=== PATIENT | male | born 1955 | race Caucasian/White ===

== ENCOUNTER → 2023-07-31 06:13 | Day surgery (SDC) | payer OTHER, SELFPAY | LOC: GI 06:13 | PROVIDERS: ATTENDING PHYSICIAN Surgery | DX: Z12.11 Encounter for screening for malignant neoplasm of colon (principal); K57.30 Diverticulosis of large intestine without perforation or abscess without bleeding; K64.9 Unspecified hemorrhoids; K62.1 Rectal polyp; D12.3 Benign neoplasm of transverse colon; Z86.010 Personal history of colon polyps | CPT/HCPCS: 45380; 88305 ==

== ENCOUNTER → 2024-04-08 10:41 | Outpatient (REF) | payer OTHER, SELFPAY ==
[2024-04-08 12:32] LABS: % Basophils 0.2 % (0-2); % Lymphocytes 5.4 % (20.5-51.1); % Monocytes 3.8 % (1.7-9.3); % Neutrophils 89.6 % (42.2-75.2); Absolute Basophils 0.1 10^3/uL (0-0.2); Absolute Immature Granulocytes 0.2 10^3/uL (0-0.05); Absolute Lymphocytes 1.3 10^3/uL (1.2-3.4); Absolute Monocytes 0.9 10^3/uL (0.1-0.6); Hematocrit 44.8 % (39.0-52.0); Hemoglobin 15.4 g/dL (13.0-18.0); Mean Corp Hgb Conc. 34.4 g/dL (33.0-37.0); Mean Corpuscular Hgb 32.1 pg (27.0-31.0); Mean Corpuscular Volume 93.3 fL (80.0-94.0); Mean Platelet Volume 9.9 fL (7.4-10.4); Nucleated Red Blood Cells % 0 % (-); Platelet Count 188 10^3/uL (130-400); Red Cell Dist. Width 12.8 % (11.5-14.5); White Blood Cell Count 23.4 10^3/uL (4.8-10.8)
[2024-04-08 12:33] LABS: ALT (SGPT) 28 U/L (0-50); AST (SGOT) 26 U/L (17-59); Albumin 4.1 g/dl (3.5-5.0); Alkaline Phosphatase 41 U/L (38-126); Blood Urea Nitrogen 17 mg/dl (9-20); Carbon Dioxide 27 mmol/L (22-30); Chloride 94 mmol/L (98-107); Glucose 134 mg/dl (70-99); Potassium 4.2 mmol/L (3.5-5.1); Sodium 136 mmol/L (135-145); Total Bilirubin 2.2 mg/dl (0.2-1.3); Total Protein 6.5 g/dl (6.3-8.2); eGFR > 60.00
== END ==
LOC: HWLAB 10:41
PROVIDERS: ATTENDING PHYSICIAN Nurse Practitioner Family
DX: R39.9 Unspecified symptoms and signs involving the genitourinary system (principal)
CPT/HCPCS: 36415; 80053; 85025

== ENCOUNTER 2024-04-08 19:34 | Inpatient (IN) | payer OTHER, SELFPAY ==
[2024-04-08] VITALS (7 sets, daily range): BP systolic 98–140; BP diastolic 53–98; BMI 37.8; BMI 38.0
[2024-04-08 16:54] LABS: Urine Albumin Trace (Neg - Trace); Urine Bilirubin Negative (Negative); Urine Character Slightly Cloudy (Clear); Urine Color Amber; Urine Glucose Negative (Negative); Urine Ketone Trace (Negative); Urine Leukocyte 2+ (Negative); Urine Nitrite Positive (Negative); Urine Occult Blood 1+ (Negative); Urine Urobilinogen Negative (Neg - 1+)
--- NOTE | 2024-04-08 17:44 | ED.GENMED ---
History of Present Illness
General
Chief Complaint: Urinary Symptoms
Source: patient
Exam Limitations: none
Time Seen by Provider: 04/08/24 17:35
History of Present Illness
History of Present Illness:
69 year old male presents with 3 days of increased urinary frequency, dysuria and now fever. No flank pain or vomiting. Labs done through PMD as outpatient this AM showed WBC 23k. He notes myalgias otherwise. History of HTN and hyperlipidemia.
No chest pain or shortness of breath. No other complaints at this time
Past History
Past History
ED Past Medical History: HTN, Hypercholesterolemia and Other (Diverticulitis with Perforation); Negative Asthma or NIDDM
ED Past Surgical History: Orthopedic (Bilateral hip replacments)
Social History
Tobacco: Non-smoker
Alcohol: None
Personal:
Living: with family
Employment: Employed
Family History
Family History: Other (Noncontributory)
Phy Exam
Physical Exam
Physical Exam:
General: Well-appearing male no acute respiratory distress
HEENT: Normocephalic atraumatic
Heart: Tachycardic but regular
Lungs: Clear no wheeze
Abdomen soft nontender nondistended no guarding rebound normal bowel sounds
Extremities: No cyanosis or edema
Sepsis
Sepsis Screening
Sepsis Assessment: Sepsis
Sepsis Screen
Sepsis Screen: Sepsis
Date: 04/08/24
Time: 18:26
Course
Orders/Labs/Results
Orders:
Orders
04/08/24 16:27
Urinalysis Reflex To Culture Urgent
Date Specimen was Collected: 04/08/24
Time Specimen was Collected: 14:40
Urine Microscopic Reflex Cult Urgent
Urine Culture Urgent
MARIELLE Source: U
Specimen Description:
Date Specimen was Collected: 04/08/24
Time Specimen was Collected: 14:40
04/08/24 17:41
CefTRIAXone [Rocephin] 1,000 mg IV NOW STA
04/08/24 17:42
CT Abd/pel Without Iv Or Oral Urgent
Comment:
Reason For Exam: hematuria
04/08/24 17:45
Lactic Acid Q4H
Comment: CANCEL 2nd LACTIC ACID IF 1st LACTIC ACID IS LESS THAN 2
04/08/24 17:59
Blood Culture Urgent
MARIELLE Source: Blood/Venous
Specimen Description:
04/08/24 18:12
Blood Culture Routine
MARIELLE Source: Blood/Venous
Specimen Description:
04/08/24 21:45
Lactic Acid Q4H
Comment: CANCEL 2nd LACTIC ACID IF 1st LACTIC ACID IS LESS THAN 2
Abnormal Lab Results
04/08/24
16:27
Urine Ketones Trace A
(Negative)
Ur Occult Blood Reflex 1+ A
(Negative)
Urine Nitrite (Reflex) Positive A
(Negative)
Leukocyte Esterase Rfl 2+ A
(Negative)
Urine WBC (Reflex) >100 A /HPF
(0-5)
Urine Bacteria (Reflex) Many A
(Negative)
Vital Signs
Initial and Last Documented VS:
Initial Vital Signs
Temp Pulse Resp BP Pulse Ox
98.6 F 115 22 123/76 97
04/08/24 13:36 04/08/24 13:36 04/08/24 13:36 04/08/24 13:36 04/08/24 13:36
Last Documented Vital Signs
Temp Pulse Resp BP Pulse Ox
99.8 F 114 22 102/70 98
04/08/24 16:20 04/08/24 16:20 04/08/24 13:36 04/08/24 16:20 04/08/24 16:20
MDM/Problems Addressed
Differential Diagnosis Includes:
Urinary symptoms with fever. I reviewed labs from earlier today which demonstrate leukocytosis white count of 23,000. Urinalysis today concerning for urinary tract infection. Temperature 99.8 tachycardia. Concern for possible sepsis secondary to
related UTI. Will order CT scan to evaluate for any obstructing stone. Fluids ordered Rocephin ordered on top of lactic acid and blood cultures.
*Critical Care Note
Total Time (30-74mins, 75-104mins- exclusive of procedures): Not Applicable
Update Note
Update Note:
Urinalysis reviewed. CT ordered to evaluate for any obstructing stone which does not show any obvious stone. Fluids ordered Rocephin ordered will admit to hospitalist for sepsis and UTI.
ED Attending Note
-
Portions of this chart may have been created with voice recognition software.� Occasional wrong word or��sound alike� substitutions may have occurred due to the inherent limitations of voice recognition software.
Discharge Plan
Departure
Patient Disposition: Admit
Date of Disposition: 04/08/24
Time of Disposition: 18:25
Admit to: Telemetry
Presentation/result/management discussed w/ accepting MD/DO: Hospitalist
Discharge Problem:
Acute UTI, Sepsis
Prescriptions:
No Action
lisinopril-hydrochlorothiazide 20-12.5 mg tablet
2 tab PO DAILY
acetaminophen 650 mg Tablet Extended Release
1,300 mg PO DAILY
rosuvastatin 10 mg tablet
10 mg PO DAILY
Referrals:
Adela Huff MD [Family Provider] -
Interventions
Interventions:
*Risk Screen - Suicide Last Done: 04/08/24 13:36
*General Assessment Last Done: 04/08/24 13:36
*Neglect/Abuse Screening Last Done: 04/08/24 13:36
Discharge Date and Time
Print Language: MACEDONIAN
[2024-04-08 17:55] LABS: Urine Bacteria Many (Negative); Urine White Cell >100 /HPF (0-5)
[2024-04-08] MEDS: ROCEPHIN 1000 MG IV (18:31)
[2024-04-08] MEDS: NSS 1000 IV ×2 (18:35→22:11)
--- NOTE | 2024-04-08 18:44 | W.PN.UPDATE ---
Update Note
Progress Note Update
This is an addendum to H&P written by BARB Hernandez
I saw and examined the patient.
The MOTION PICTURE EQUIPMENT MACHINIST's note was reviewed and I agree with the note.
Comment:
Mr. Jorje Downs is a 69 yo man with hx HTN, HLD, b/l hip replacements presents to the ER with 3 days of increased urinary frequency and dysuria and fever x 1 day. No flank pain or vomiting. No significant lower abdominal/suprapubic pain.
Triage VS: T 98.6, P 115, RR 22, BP 123/76, SpO2 97%
On exam patient is in no acute distress, mildly flushed, lungs clear, CV: S2, S2, abdomen benign, no LE swelling
LABS: WBC 23.4, Hg 15.4, PLT 188, Na 136, K+ 4.2, Cl 94, Cr 1.1, Glucose 134, T. Bili 2.2, AST 26, ALT 28, Alk Phos 41, lactate 1.5 �
UA with > 100 WBC, 2+ leuk esterase
CT A/P
IMPRESSION: No acute pathology of the abdomen or pelvis identified.
Hepatic fatty infiltration. Stable
Small simple left renal cysts. Stable
Moderate fecal material throughout the colon. Progressed
Moderate diffuse bladder wall thickening likely at least partially due to limited distention. Cystitis and bladder outlet obstruction not excluded. Stable
Nonvisualization of distal ureters secondary to metallic artifact from bilateral hip hardware.
MAR: IV Ceftriaxone, IVF
Sepsis 2/2 UTI
-admit to telemetry
-IVF
-IV Ceftriaxone
-F/U urine culture
Essential HTN
-hold lisinopril-HCTZ with soft BP in ER
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
[2024-04-08 18:48] LABS: Lactic Acid 1.5 mmol/L (0.7-2.0)
--- NOTE | 2024-04-08 18:54 | HPS.HSE ---
Family Physician
-
Family Physician: Adela Huff
Chief Complaint
-
Fever and Dysuria
History of Present Illness
Patient is a 69 y/o male past medical history fo hypertension, and hyperlipidemia who presents with dysuria and fever. Patient reports he noted some burning with urination on Saturday evening. He noted worsening dysuria Saturday evening, and notes
significant urinary frequency. He reports low grades fevers. He saw his PCP this morning who did a a urinalysis in the office then sent him for blood work which revealed WBC 23K prompting him to come to the emergency department for evaluation. He
denies any prior history of urinary tract infection or kidney stones.
Medical History
Past Medical History
Past Medical History: Reports Other
Additional Past Medical History:
Essential Hypertension
Hyperlipidemia
Past Surgical History: Reports Other
Additional Past Surgical History:
Bilateral Hip Replacement
Left Shoulder Replacement
Social History
Tobacco: Non-smoker
Alcohol: Occasional
Family History
Family History: Not pertinent
Allergies / Home Medications
Allergies reflects when Allergies were last updated in [facility] [employer].
Home Medications with original date entered in [facility] [facility]
Allergy/Medication List:
Allergies
Allergy/AdvReac Type Severity Reaction Status Date / Time
No Known Allergies Allergy Verified 12/02/22 02:54
Home Medications
acetaminophen 650 mg tablet,extended release 1,300 mg PO DAILY 04/08/24
lisinopril 20 mg-hydrochlorothiazide 12.5 mg tablet 2 tab PO DAILY 04/08/24
rosuvastatin 10 mg tablet 10 mg PO DAILY 04/08/24
Review of Systems
-
A 12 point ROS was completed and negative except as noted: Yes
Constitutional: Reports Fever and Chills
Respiratory: Denies Cough or Trouble Breathing
Cardiac: Denies Chest Pain or Palpitations
Abdomen/GI: Denies Abdominal Pain, Nausea or Vomiting
: Reports Dysuria and Frequency; Denies Flank Pain
Physical Exam
Vital Signs
Vital Signs
Temp Pulse Resp BP Pulse Ox
99.8 F 103 16 98/53 94
04/08/24 16:20 04/08/24 18:41 04/08/24 18:41 04/08/24 18:41 04/08/24 18:41
Physical Exam
General: Comfortable and Conversant
HEENT: Anicteric and Moist mucous membranes
Respiratory: Clear and Non Labored Respirations
Cardiac: S1/S2, Regular Rhythm and Tachycardia (Slightly)
GI: Soft and Non Tender
Rectal: Deferred by Provider
Genito-urinary: No costovertebral tender
Musculoskeletal: No Clubbing, No Cyanosis and No Edema
Skin: Warm and Dry
Neuro: Awake, Alert, Oriented and Nonfocal/grossly intact
Psych: Calm
Laboratory Results
-
Laboratory Results
Lactic Acid 1.5 mmol/L (0.7-2.0) 04/08/24 18:22
Data Reviewed
-
CT Scan: Report Reviewed by me
Lab Data: Labs Reviewed by me
Impression/Plan
-
Sepsis secondary to Urinary Tract Infection
-Await urine and blood cultures
-Continue Ceftriaxone
-Continue IVFs
Essential Hypertension
-Hold anti-hypertensives as BP running on the low side
Hyperlipidemia
-Continue Crestor
DVT proph: Lovenox
Code Status: Full Code
[2024-04-09] VITALS (13 sets, daily range): BP systolic 93–137; BP diastolic 59–85
[2024-04-09 04:30] LABS: Hematocrit 39.7 % (39.0-52.0); Mean Corp Hgb Conc. 35.3 g/dL (33.0-37.0); Mean Corpuscular Hgb 31.1 pg (27.0-31.0); Mean Corpuscular Volume 88.2 fL (80.0-94.0); Mean Platelet Volume 9.9 fL (7.4-10.4); Platelet Count 158 10^3/uL (130-400); White Blood Cell Count 20.9 10^3/uL (4.8-10.8)
[2024-04-09 05:02] LABS: ALT (SGPT) 23 U/L (0-50); AST (SGOT) 20 U/L (17-59); Albumin 3.5 g/dl (3.5-5.0); Alkaline Phosphatase 50 U/L (38-126); Blood Urea Nitrogen 21 mg/dl (9-20); Calcium 8.8 mg/dl (8.4-10.2); Carbon Dioxide 25 mmol/L (22-30); Chloride 99 mmol/L (98-107); Estimated Creatinine Clearance 100 ml/min; Glucose 122 mg/dl (70-99); Sodium 134 mmol/L (135-145); Total Bilirubin 1.3 mg/dl (0.2-1.3); Total Protein 5.9 g/dl (6.3-8.2); eGFR > 60.00
--- NOTE | 2024-04-09 08:29 | W.PN.HOSP.TC ---
Today's Communication/Plan
-
continue rocephin pending ur cx
Follow post void residual
Assessment / Plan
Assessment / Plan
Sepsis secondary to Urinary Tract Infection
(fever, leukocytosis, RR 26, HR 110)
-Await urine and blood cultures
BPH symptoms for 1-2 years with acute worsening (nocturia going from 1-2x per night to 6-8x per night past 48 hrs)
-Continue Ceftriaxone
-Continue IVFs
Bladder scan ordered if no void q6h, discussed with nursing requested q6h post void residual scheduled
WBC 23.4-->20.9k
CT scan Abd/pelvis: No acute pathology of the abdomen or pelvis identified.
Hepatic fatty infiltration. Stable
Small simple left renal cysts. Stable
Moderate fecal material throughout the colon. Progressed
Moderate diffuse bladder wall thickening likely at least partially due to limited distention. Cystitis and bladder outlet obstruction not excluded. Stable
Nonvisualization of distal ureters secondary to metallic artifact from bilateral hip hardware.
Essential Hypertension
-Hold anti-hypertensives as BP running on the low side
Hyperlipidemia
-Continue Crestor
DVT proph: Lovenox
Code Status: Full Code
Anticipated Discharge: 24 - 48 hours
Subjective/Interval History
-
Date of Service: April 09, 2024
Chronic BPH symptoms with onset of dysuria and markedly worsening urgency past 3 days
Objective Data
-
Labs:
Laboratory Results
04/09/24
04:17
WBC 20.9 H
Hgb 14.0
Hct 39.7
Plt Count 158
Sodium 134 L
Potassium 4.0
Chloride 99
Carbon Dioxide 25
BUN 21 H
Creatinine 1.0
Glucose 122 H
Calcium 8.8
Total Bilirubin 1.3
AST 20
ALT 23
Alkaline Phosphatase 50
Vital Signs:
Vital Signs
Temp Pulse Resp BP Pulse Ox
100.1 F 95 24 105/79 94
04/08/24 21:20 04/09/24 06:15 04/09/24 06:15 04/09/24 04:00 04/08/24 22:01
I&O
04/08/24 04/09/24 04/10/24
06:59 06:59 06:59
Output Total 200 / 200
Balance -200 / -200
Review of Systems
-
History Source: Patient and Coordinated Provider
Constitutional: Reports Fever (100.1)
Respiratory: Reports No Symptoms
Cardiac: Reports No Symptoms
Abdomen/GI: Reports No Symptoms
Genitourinary: Reports Dysuria, Frequency, Difficulty Voiding and Urgency
Musculoskeletal: Reports No Symptoms
Neuro: Reports No Symptoms
Physical Exam
-
General: Well Developed, Well Nourished and No Apparent Distress
HEENT: Normocephalic, Atraumatic and Moist Mucous Membranes
Respiratory: Clear to Auscultation; Negative Wheezes, Rales or Rhonchi
Cardiac: Regular Rhythm and S1/S2
GI: Nontender and Nondistended
Musculoskeletal: No Clubbing, No Cyanosis and No Edema
Neuro: Awake, Alert and Oriented
[2024-04-09] MEDS: CRESTOR 10 MG PO (09:17)
[2024-04-09] MEDS: NSS 1000 IV (09:18)
[2024-04-09] MEDS: TYLENOL 650 MG PO ×2 (11:23→19:47)
--- NOTE | 2024-04-09 16:39 | PTCARENOTE ---
Pt received from ED. AAOx3. Able to ambulate independently. 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 VSS. IVF infusing per order. Pt resting in bed, call lewis in reach.
[2024-04-09] MEDS: LOVENOX 40 MG SC (17:09)
[2024-04-09] MEDS: STERILE WATER FOR INJECTION 10 ML IV (17:09)
[2024-04-09] MEDS: ROCEPHIN 1000 MG IV (17:09)
[2024-04-09 20:57] LABS: Hepatitis C Antibody Negative (Negative)
[2024-04-10] MEDS: NSS 1000 IV (00:19)
[2024-04-10 03:53] VITALS: BP 154/88
[2024-04-10 06:09] LABS: % Basophils 0.3 % (0-2); % Eosinophils 0.3 % (0-6); % Immature Granulocytes 0.6 % (0-0.5); % Lymphocytes 8.3 % (20.5-51.1); % Monocytes 7.9 % (1.7-9.3); % Neutrophils 82.6 % (42.2-75.2); Absolute Immature Granulocytes 0.1 10^3/uL (0-0.05); Absolute Lymphocytes 0.9 10^3/uL (1.2-3.4); Absolute Monocytes 0.8 10^3/uL (0.1-0.6); Absolute Neutrophils 8.8 10^3/uL (1.4-6.5); Mean Corpuscular Hgb 32.1 pg (27.0-31.0); Mean Corpuscular Volume 91.7 fL (80.0-94.0); Mean Platelet Volume 10.3 fL (7.4-10.4); Nucleated Red Blood Cells % 0 % (-); Platelet Count 148 10^3/uL (130-400); Red Blood Cell Count 4.36 10^6/uL (4.70-6.10); Red Cell Dist. Width 12.6 % (11.5-14.5); White Blood Cell Count 10.7 10^3/uL (4.8-10.8)
[2024-04-10 06:35] LABS: Blood Urea Nitrogen 18 mg/dl (9-20); Calcium 8.2 mg/dl (8.4-10.2); Carbon Dioxide 26 mmol/L (22-30); Chloride 101 mmol/L (98-107); Estimated Creatinine Clearance 111 ml/min; Glucose 122 mg/dl (70-99); Sodium 137 mmol/L (135-145); eGFR > 60.00
[2024-04-10 07:57] VITALS: BP 123/83
[2024-04-10] MEDS: CRESTOR 10 MG PO (08:49)
[2024-04-10 12:00] VITALS: BP 118/84
--- NOTE | 2024-04-10 12:28 | W.PN.HOSP.TC ---
Today's Communication/Plan
-
continue Rocephin, transition to oral abx once sensitivity known
Assessment / Plan
Assessment / Plan
Sepsis secondary to Urinary Tract Infection
(fever, leukocytosis, RR 26, HR 110)
-Await urine and blood cultures
BPH symptoms for 1-2 years with acute worsening (nocturia going from 1-2x per night to 6-8x per night past 48 hrs)
-Continue Ceftriaxone
-stop IVFs
Bladder scan ordered, residual today was 75 cc
WBC 23.4-->20.9-->10.7k
CT scan Abd/pelvis: No acute pathology of the abdomen or pelvis identified.
Hepatic fatty infiltration. Stable
Small simple left renal cysts. Stable
Moderate fecal material throughout the colon. Progressed
Moderate diffuse bladder wall thickening likely at least partially due to limited distention. Cystitis and bladder outlet obstruction not excluded. Stable
Nonvisualization of distal ureters secondary to metallic artifact from bilateral hip hardware.
Essential Hypertension
was 98/53 shortly after admission, now 118/84
-BP doing better, but will continue to hold anti-hypertensives as BP running on the low side
Hyperlipidemia
-Continue Crestor
DVT proph: Lovenox
Code Status: Full Code
will need follow up with Urology at time of dc. Discussed with Dr. Cr
Anticipated Discharge: Within 24 hours
Subjective/Interval History
-
Date of Service: April 10, 2024
Feels much better and really wants to go home
Objective Data
-
Labs:
Laboratory Results
04/10/24
05:41
WBC 10.7
Hgb 14.0
Hct 40.0
Plt Count 148
Sodium 137
Potassium 4.0
Chloride 101
Carbon Dioxide 26
BUN 18
Creatinine 0.9
Glucose 122 H
Calcium 8.2 L
Vital Signs:
Vital Signs
Temp Pulse Resp BP Pulse Ox
99.8 F 96 16 118/84 96
04/10/24 12:00 04/10/24 12:00 04/10/24 12:00 04/10/24 12:00 04/10/24 12:00
I&O
04/09/24 04/10/24 04/11/24
06:59 06:59 06:59
Output Total 200 / 200 300 / 300
Balance -200 / -200 -300 / -300
Review of Systems
-
History Source: Patient and Coordinated Provider
Constitutional: Reports Fever (101)
Respiratory: Reports No Symptoms
Cardiac: Reports No Symptoms
Abdomen/GI: Reports No Symptoms
Genitourinary: Reports Dysuria (resolved), Frequency (decreased), Difficulty Voiding (resolved) and Urgency (better)
Musculoskeletal: Reports No Symptoms
Neuro: Reports No Symptoms
Physical Exam
-
General: Well Developed, Well Nourished and No Apparent Distress
HEENT: Normocephalic, Atraumatic and Moist Mucous Membranes
Respiratory: Clear to Auscultation; Negative Wheezes, Rales or Rhonchi
Cardiac: Regular Rhythm and S1/S2
GI: Nontender and Nondistended
Musculoskeletal: No Clubbing, No Cyanosis and No Edema
Neuro: Awake, Alert and Oriented
[2024-04-10 15:21] VITALS: BP 126/73
[2024-04-10] MEDS: FLOMAX 0.4 MG PO (15:30)
--- NOTE | 2024-04-10 16:05 | CM ---
Alert awake oriented patient who lives with his Rohini in a 3 story home with 2 step to enter and 27 steps to bed and bathroom. He is independent in driving and in all activities of daily living.He was offered VN he declined need.
No VN hx / No SNF history
Pharmacy [facility]
PCP DR Huff
PLAN Home Declined VN
[2024-04-10] MEDS: LOVENOX 40 MG SC (17:23)
[2024-04-10] MEDS: ROCEPHIN 1000 MG IV (17:23)
[2024-04-10] MEDS: STERILE WATER FOR INJECTION 10 ML IV (17:23)
[2024-04-10] MEDS: ANESTHETIC LOZENGE 1 LOZENGE PO (18:24)
[2024-04-10 19:57] VITALS: BP 143/91
[2024-04-10 23:33] VITALS: BP 116/66
[2024-04-11 03:21] VITALS: BP 121/79
[2024-04-11 06:00] VITALS: BMI 37.8
[2024-04-11 06:53] LABS: % Basophils 0.2 % (0-2); % Eosinophils 1.7 % (0-6); % Immature Granulocytes 1.5 % (0-0.5); % Lymphocytes 18.8 % (20.5-51.1); % Monocytes 13.5 % (1.7-9.3); % Neutrophils 64.3 % (42.2-75.2); Absolute Eosinophils 0.1 10^3/uL (0-0.7); Absolute Immature Granulocytes 0.1 10^3/uL (0-0.05); Absolute Lymphocytes 1.1 10^3/uL (1.2-3.4); Absolute Monocytes 0.8 10^3/uL (0.1-0.6); Absolute Neutrophils 3.8 10^3/uL (1.4-6.5); Hematocrit 39.2 % (39.0-52.0); Hemoglobin 13.7 g/dL (13.0-18.0); Mean Corp Hgb Conc. 34.9 g/dL (33.0-37.0); Mean Corpuscular Hgb 31.3 pg (27.0-31.0); Mean Corpuscular Volume 89.5 fL (80.0-94.0); Mean Platelet Volume 10.4 fL (7.4-10.4); Nucleated Red Blood Cells % 0 % (-); Platelet Count 152 10^3/uL (130-400); Red Blood Cell Count 4.38 10^6/uL (4.70-6.10); Red Cell Dist. Width 12.6 % (11.5-14.5); White Blood Cell Count 5.9 10^3/uL (4.8-10.8)
[2024-04-11 07:14] LABS: Blood Urea Nitrogen 16 mg/dl (9-20); Calcium 8.4 mg/dl (8.4-10.2); Carbon Dioxide 28 mmol/L (22-30); Chloride 103 mmol/L (98-107); Estimated Creatinine Clearance 111 ml/min; Glucose 113 mg/dl (70-99); Sodium 138 mmol/L (135-145); eGFR > 60.00
[2024-04-11 08:01] VITALS: BP 147/93
[2024-04-11] MEDS: FLOMAX 0.4 MG PO (08:17)
[2024-04-11] MEDS: CRESTOR 10 MG PO (08:18)
--- NOTE | 2024-04-11 09:26 | W.PN.HOSP.TC ---
Today's Communication/Plan
-
dc to home
Assessment / Plan
Assessment / Plan
Sepsis secondary to Urinary Tract Infection
(fever, leukocytosis, RR 26, HR 110)
- urine culture demonstrated pansensitive E. Coli
BPH symptoms for 1-2 years with acute worsening (nocturia going from 1-2x per night to 6-8x per night past 48 hrs)
-Transition to oral abx
-stop IVFs
Bladder scan ordered, residual 04/10 was 75 cc
WBC 23.4-->20.9-->10.7-->5.9k
CT scan Abd/pelvis: No acute pathology of the abdomen or pelvis identified.
Hepatic fatty infiltration. Stable
Small simple left renal cysts. Stable
Moderate fecal material throughout the colon. Progressed
Moderate diffuse bladder wall thickening likely at least partially due to limited distention. Cystitis and bladder outlet obstruction not excluded. Stable
Nonvisualization of distal ureters secondary to metallic artifact from bilateral hip hardware.
Essential Hypertension
was 98/53 shortly after admission, now 147/93
-resume BP meds on return home
Hyperlipidemia
-Continue Crestor
DVT proph: Lovenox
Code Status: Full Code
will need follow up with Urology at time of dc. Discussed with Dr. Cr
will dc now
see dictated note
Anticipated Discharge: Today
Subjective/Interval History
-
Date of Service: April 11, 2024
Feels well, no problem with urinating
Objective Data
-
Labs:
Laboratory Results
04/11/24
06:17
WBC 5.9
Hgb 13.7
Hct 39.2
Plt Count 152
Sodium 138
Potassium 4.0
Chloride 103
Carbon Dioxide 28
BUN 16
Creatinine 0.9
Glucose 113 H
Calcium 8.4
Vital Signs:
Vital Signs
Temp Pulse Resp BP Pulse Ox
98.3 F 87 16 147/93 95
04/11/24 08:01 04/11/24 08:01 04/11/24 08:01 04/11/24 08:01 04/11/24 08:01
I&O
04/10/24 04/11/24 04/12/24
06:59 06:59 06:59
Intake Total 1380 / 1380
Output Total 300 / 300
Balance -300 / -300 1380 / 1380
Review of Systems
-
History Source: Patient and Coordinated Provider
Constitutional: Reports Fever (101 on 04/09, none since)
Respiratory: Reports No Symptoms
Cardiac: Reports No Symptoms
Abdomen/GI: Reports No Symptoms
Genitourinary: Reports Dysuria (resolved), Frequency (decreased), Difficulty Voiding (resolved) and Urgency (better)
Musculoskeletal: Reports No Symptoms
Neuro: Reports No Symptoms
Physical Exam
-
General: Well Developed, Well Nourished and No Apparent Distress
HEENT: Normocephalic, Atraumatic and Moist Mucous Membranes
Respiratory: Clear to Auscultation; Negative Wheezes, Rales or Rhonchi
Cardiac: Regular Rhythm and S1/S2
GI: Nontender and Nondistended
Musculoskeletal: No Clubbing, No Cyanosis and No Edema
Neuro: Awake, Alert and Oriented
--- NOTE | 2024-04-11 09:39 | W.DS.TRANS ---
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
-
Discharge Instructions:
Discharge Diagnosis/Procedures Acute UTI
Diet Regular
Activity No strenuous activity
Driving Restrictions As prior to admission
Bathing Restrictions None
Blood Work CBC, BMP, PSA, UA with C&S in 2-3 weeks
Instructions:
Stand-Alone Forms:
Changes to Home Medications: Yes
Discharge Medications:
DC Medications w/original date entered in [employer]
acetaminophen 650 mg tablet,extended release 1,300 mg PO DAILY pain 04/08/24
lisinopril 20 mg-hydrochlorothiazide 12.5 mg tablet 2 tab PO DAILY blood pressure 04/08/24
rosuvastatin 10 mg tablet 10 mg PO DAILY high cholesterol 04/08/24
cefuroxime axetil 500 mg tablet 500 mg PO BID 10 days #20 tabs 04/11/24
tamsulosin 0.4 mg capsule 0.4 mg PO DAILY #30 caps 04/11/24
Home Medication Changes
Ceftin bid for 10 days
Flomax daily
Pending Results: No
[2024-04-11] MEDS: FLUAD (65 yr+) 2024-2025 FORMULA 0.5 ML IM (10:02)
--- NOTE | 2024-04-11 12:30 | CM ---
met with patient at bedside.he is stable for dc home wwith no needs.patient signed imm letter.Plan:home with no needs.
== END 2024-04-11 10:40 | disposition home or self-care (01) | DRG 872 ==
LOC: 3 WEST ACU 19:34
PROVIDERS: Physician Assistant; Physician Assistant Medical; ADMITTING PHYSICIAN Student in an Organized Health Care Education/Training Program; ATTENDING PHYSICIAN Internal Medicine; EMERGENCY PHYSICIAN Emergency Medicine; FAMILY PHYSICIAN Internal Medicine
DX: A41.9 Sepsis, unspecified organism (principal); N39.0 Urinary tract infection, site not specified; I10 Essential (primary) hypertension; E78.00 Pure hypercholesterolemia, unspecified; N28.1 Cyst of kidney, acquired; N40.0 Benign prostatic hyperplasia without lower urinary tract symptoms
CPT/HCPCS: 74176; 80048; 80053; 81003; 81015; 83605; 85025; 85027; 86803; 87040; 87077; 87086; 87186; 90662; 93005; 96361; 96374; 99284; G0008

== ENCOUNTER → 2024-11-30 14:40 | Outpatient (REF) | payer BC, MEDICARE, SELFPAY | LOC: HWRAD 14:40 | PROVIDERS: ATTENDING PHYSICIAN Student in an Organized Health Care Education/Training Program; FAMILY PHYSICIAN Nurse Practitioner Family | DX: M25.511 Pain in right shoulder (principal) | CPT/HCPCS: 73200 ==

== ENCOUNTER → 2024-12-03 06:34 | Outpatient (REF) | payer BC, MEDICARE, SELFPAY | LOC: MRI 06:34 | PROVIDERS: ATTENDING PHYSICIAN Student in an Organized Health Care Education/Training Program; FAMILY PHYSICIAN Nurse Practitioner Family | DX: M25.511 Pain in right shoulder (principal) | CPT/HCPCS: 73221 ==

== ENCOUNTER 2025-01-06 06:31 | Day surgery (SDC) | payer OTHER, SELFPAY ==
--- NOTE | 2024-12-21 12:47 | CM ---
Cm reviewed medical records. CM spoke with patient via life telephone. Patient lives independently with . Patient does not have VN in the home currently. Patient does not have a SNF history. Patient is active with his PCP. Patient plans to use
[facility] for medication services.
Patient's will provide transportation.
Patient will most like use [facility] when surgically cleared.
PLAN: home, outpatient PT when cleared.
[2024-12-28 13:50] VITALS: BMI 38.0
[2024-12-29 08:25] LABS: Glycohemoglobin (HgbA1c) 5.9 % (4.0-5.6)
[2025-01-04 08:42] VITALS: BMI 38.0
[2025-01-06] VITALS (8 sets, daily range): BP systolic 109–134; BP diastolic 72–94; BMI 38.0
[2025-01-06] MEDS: BACTROBAN NASAL 1 GRAM NASAL (08:31)
[2025-01-06] MEDS: CELEBREX 200 MG PO (08:31)
[2025-01-06] MEDS: TYLENOL 1000 MG PO (08:31)
[2025-01-06] MEDS: NORMOSOL-R/PLASMALYTE-A 1000 IV (08:32)
--- NOTE | 2025-01-06 10:54 | W.DS.TRANS ---
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
-
Discharge Instructions:
Sleep Apnea Risk High
Discharge Diagnosis/Procedures R UDAY Cueva 01/06/25
Diet As tolerated
Activity No strenuous activity
Driving Restrictions No driving
Instructions:
Stand-Alone Forms: SDS Total Shoulder D/C Inst.
Changes to Home Medications: Yes
Discharge Medications:
DC Medications w/original date entered in [facility]
rosuvastatin 10 mg tablet 10 mg PO DAILY high cholesterol 04/08/24
celecoxib 200 mg capsule (Celebrex) 200 mg PO DAILY #14 caps 12/28/24
doxycycline monohydrate 100 mg capsule 100 mg PO BID #7 caps 12/28/24
famotidine 20 mg tablet (Pepcid) 20 mg PO HS #30 tabs 12/28/24
gabapentin 300 mg capsule 300 mg PO HS neuropathic pain/sleep #10 caps 12/28/24
mupirocin 2 % topical ointment 1 applic intranasal BID #1 tube 12/28/24
ondansetron HCl 4 mg tablet 4 mg PO Q6H PRN nausea and vomiting #30 tabs 12/28/24
tramadol 50 mg tablet 50 - 100 mg (1 - 2 x 50 mg) PO Q6H PRN moderate-severe pain #30 tabs 12/28/24
Saccharomyces boulardii 250 mg capsule (Florastor) 250 mg PO BID #1 cap 01/06/25
acetaminophen 650 mg tablet,extended release 1,300 mg (2 x 650 mg) PO TID pain #0 tabs 01/06/25
aspirin 325 mg tablet 325 mg PO DAILY blood clot prevention #1 tab 01/06/25
docusate sodium 100 mg capsule (Colace) 100 mg PO BID stool softner #1 cap 01/06/25
lisinopril 20 mg tablet 20 mg PO DAILY #0 tabs 01/06/25
magnesium hydroxide 400 mg/5 mL oral suspension (Milk of Magnesia) 30 ml PO HS PRN constipation #1 mL 01/06/25
sennosides 8.6 mg tablet (Senokot) 17.2 mg (2 x 8.6 mg) PO BID laxative #2 tabs 01/06/25
Home Medication Changes
celecoxib 200 mg capsule (Celebrex) 200 mg PO DAILY #14 caps 12/28/24
doxycycline monohydrate 100 mg capsule 100 mg PO BID #7 caps 12/28/24
famotidine 20 mg tablet (Pepcid) 20 mg PO HS #30 tabs 12/28/24
gabapentin 300 mg capsule 300 mg PO HS neuropathic pain/sleep #10 caps 12/28/24
mupirocin 2 % topical ointment 1 applic intranasal BID #1 tube 12/28/24
ondansetron HCl 4 mg tablet 4 mg PO Q6H PRN nausea and vomiting #30 tabs 12/28/24
tramadol 50 mg tablet 50 - 100 mg (1 - 2 x 50 mg) PO Q6H PRN moderate-severe pain #30 tabs 12/28/24
Saccharomyces boulardii 250 mg capsule (Florastor) 250 mg PO BID #1 cap 01/06/25
acetaminophen 650 mg tablet,extended release 1,300 mg (2 x 650 mg) PO TID pain #0 tabs 01/06/25
aspirin 325 mg tablet 325 mg PO DAILY blood clot prevention #1 tab 01/06/25
docusate sodium 100 mg capsule (Colace) 100 mg PO BID stool softner #1 cap 01/06/25
lisinopril 20 mg tablet 20 mg PO DAILY #0 tabs 01/06/25
magnesium hydroxide 400 mg/5 mL oral suspension (Milk of Magnesia) 30 ml PO HS PRN constipation #1 mL 01/06/25
sennosides 8.6 mg tablet (Senokot) 17.2 mg (2 x 8.6 mg) PO BID laxative #2 tabs 01/06/25
Pending Results: No
[2025-01-06] MEDS: ANCEF 5 IV (15:34)
== END 2025-01-06 16:05 | disposition home or self-care (01) ==
LOC: SDS 06:31
PROVIDERS: ATTENDING PHYSICIAN Orthopaedic Surgery Hand Surgery; FAMILY PHYSICIAN Nurse Practitioner Family
DX: M19.011 Primary osteoarthritis, right shoulder (principal)
CPT/HCPCS: 23472; C1713; C1776; 36415; 73020; 76000; 83036; 87070